=== PATIENT | female | born 1980 | race Caucasian/White ===

== ENCOUNTER 2022-03-29 12:40 | Emergency (ER) | payer OTHER ==
--- NOTE | 2022-03-29 14:54 | XR ---
EXAMINATION TYPE: XR chest 2V DATE OF EXAM: 03/29/2022 COMPARISON: NONE HISTORY: Bilateral leg swelling TECHNIQUE: 2 views FINDINGS: Heart and mediastinum are normal. Lungs are clear. Diaphragm is normal. Bony thorax is inta ct. IMPRESSION: Normal chest
[2022-03-29 15:16] LABS: Basophils # (A) 0.1 k/uL (0-0.2); Basophils % (A) 1 %; Eosinophils # (A) 0.2 k/uL (0-0.7); Eosinophils % (A) 4 %; HCT 42.4 % (34.0-46.0); HGB 13.6 gm/dL (11.4-16.0); Lymphocytes # (A) 2.7 k/uL (1.0-4.8); Lymphocytes % (A) 53 %; MCH 31.7 pg (25.0-35.0); MCHC 32.1 g/dL (31.0-37.0); MCV 98.8 fL (80.0-100.0); Mean Platelet Volume 7.8; Monocytes # (A) 0.3 k/uL (0-1.0); Monocytes % (A) 6 %; Neutrophils # (A) 1.7 k/uL (1.3-7.7); Neutrophils % (A) 33 %; Platelet Count 313 k/uL (150-450); RBC 4.29 m/uL (3.80-5.40); RDW 13.6 % (11.5-15.5); WBC 5.2 k/uL (3.8-10.6)
[2022-03-29 15:31] LABS: ALT 16 U/L (4-34); AST 25 U/L (14-36); African American GFR (CKD) >90 (>60 ml/min/1.73 sqM); Albumin 4.5 g/dL (3.5-5.0); Alkaline Phosphatase 91 U/L (38-126); Anion Gap 12 mmol/L; Blood Urea Nitrogen 12 mg/dL (7-17); Carbon Dioxide 23 mmol/L (22-30); Chloride 105 mmol/L (98-107); Glucose 82 mg/dL (74-99); Lipase 70 U/L (23-300); Non-African American GFR(CKD) >90 (>60 ml/min/1.73 sqM); Potassium 3.9 mmol/L (3.5-5.1); Sodium 140 mmol/L (137-145); Total Bilirubin 0.5 mg/dL (0.2-1.3); Total Protein 7.3 g/dL (6.3-8.2)
--- NOTE | 2022-03-29 15:42 | US ---
EXAMINATION TYPE: US venous doppler duplex LE BI DATE OF EXAM: 03/29/2022 3:32 PM COMPARISON: NONE CLINICAL HISTORY: swelling. SIDE PERFORMED: Bilateral TECHNIQUE: The lower extremity deep venous system is examined utilizing real time linear array sonog dannie with graded compression, doppler sonography and color-flow sonography. VESSELS IMAGED: Common Femoral Vein Deep Femoral Vein Greater Saphenous Vein * Femoral Vein Popliteal Vein Small Saphenous Vein * Proximal Calf Veins (* superficial vessels) Right Leg: Negative for DVT Left Leg: Negative for DVT IMPRESSION: No evidence of deep vein thrombosis in the left and right leg.
--- NOTE | 2022-03-29 17:27 | ED ---
Extremity Problem HPI - General Chief complaint: Extremity Problem,Nontraumatic Stated complaint: leg&ankle swelling Time Seen by Provider: 03/29/22 14:09 Source: patient Mode of arrival: ambulatory Limitations: no limitations - History of Present Illness Initial comments: Patient is 41-year-old female with past medical history of GERD, fibromyalgia, and asthma who presents to the emergency department with a chief complaint of lower leg swelling. Patient states symptoms started today and it worsened throughout the day. Patient noticed after 2 mile walk. Swelling is in both feet and ankles and travels to the lower calves. She denies leg pain and injury. Denies history of DVT and PE. Denies history of cardiac disease. Denies fever, chills, chest pain, shortness of breath, cough, abdominal pain, nausea, vomiting. Patient states she walks 20-30 miles a day. States for the past 3 weeks she has only walks about 10 miles a day. - Related Data Home Medications Medication Instructions Recorded Confirmed LORazepam [Ativan] 1 mg PO TID PRN 09/15/15 09/15/15 Previous Rx's Medication Instructions Recorded Naproxen [Naprosyn] 250 mg PO BID PRN #15 tab 09/15/15 Allergies Allergy/AdvReac Type Severity Reaction Status Date / Time Penicillins Allergy Rash/Hives Verified 03/29/22 12:54 Review of Systems ROS Statement: Those systems with pertinent positive or pertinent negative responses have been documented in the HPI. ROS Other: All systems not noted in ROS Statement are negative. Past Medical History Past Medical History: Asthma, Fibromyalgia, GERD/Reflux Additional Past Medical History / Comment(s): bulging disc-neck & back History of Any Multi-Drug Resistant Organisms: None Reported Past Surgical History: Section, Cholecystectomy Past Anesthesia/Blood Transfusion Reactions: No Reported Reaction Past Psychological History: No Psychological Hx Reported Smoking Status: Current every day smoker Past Alcohol Use History: None Reported Past Drug Use History: Marijuana General Exam Limitations: no limitations General appearance: alert, in no apparent distress Head exam: Present: atraumatic, normocephalic, normal inspection Eye exam: Present: normal appearance, PERRL, EOMI. Absent: scleral icterus, conjunctival injection, periorbital swelling Neck exam: Present: normal inspection. Absent: tenderness, meningismus, lymphadenopathy Respiratory exam: Present: normal lung sounds bilaterally. Absent: respiratory distress, wheezes, rales, rhonchi, stridor Cardiovascular Exam: Present: regular rate, normal rhythm, normal heart sounds. Absent: systolic murmur, diastolic murmur, rubs, gallop, clicks, JVD, S3, S4 GI/Abdominal exam: Present: soft, normal bowel sounds. Absent: distended, tenderness, guarding, rebound, rigid Extremities exam: Present: full ROM, normal capillary refill, pedal edema (non pitting ). Absent: tenderness, calf tenderness Neurological exam: Present: alert, oriented X3, CN II-XII intact Psychiatric exam: Present: normal affect, normal mood Course Vital Signs 03/29/22 03/29/22 12:54 18:16 Temperature 98 F 98.2 F Pulse Rate 69 71 Respiratory 18 16 Rate Blood Pressure 119/63 111/70 O2 Sat by Pulse 99 99 Oximetry Medical Decision Making - Medical Decision Making This is a 41-year-old female who presents with swelling of the bilateral legs. On physical exam the bilateral feet, ankles, and lower calves are edematous without any pitting. Laboratory studies obtained. Kidney function is normal. BNP is within normal limits. Urinalysis is unremarkable. Results discussed with patient. This is likely dependent edema. Patient will be discharged with conservative care instructions. She is also instructed that she needs to establish care with primary care provider who can further evaluate management her symptoms. She verbalizes understanding. Dr. Salazar is my attending. - Lab Data Result diagrams: 03/29/22 15:08 03/29/22 15:08 Lab Results 03/29/22 03/29/22 03/29/22 Range/Units 15:08 15:08 15:08 WBC 5.2 (3.8-10.6) k/uL RBC 4.29 (3.80-5.40) m/uL Hgb 13.6 (11.4-16.0) gm/dL Hct 42.4 (34.0-46.0) % MCV 98.8 (80.0-100.0) fL MCH 31.7 (25.0-35.0) pg MCHC 32.1 (31.0-37.0) g/dL RDW 13.6 (11.5-15.5) % Plt Count 313 (150-450) k/uL MPV 7.8 Neutrophils % 33 % Lymphocytes % 53 % Monocytes % 6 % Eosinophils % 4 % Basophils % 1 % Neutrophils # 1.7 (1.3-7.7) k/uL Lymphocytes # 2.7 (1.0-4.8) k/uL Monocytes # 0.3 (0-1.0) k/uL Eosinophils # 0.2 (0-0.7) k/uL Basophils # 0.1 (0-0.2) k/uL Sodium 140 (137-145) mmol/L Potassium 3.9 (3.5-5.1) mmol/L Chloride 105 (98-107) mmol/L Carbon Dioxide 23 (22-30) mmol/L Anion Gap 12 mmol/L BUN 12 (7-17) mg/dL Creatinine 0.56 (0.52-1.04) mg/dL Est GFR (CKD-EPI)AfAm >90 (>60 ml/min/1.73 sqM) Est GFR (CKD-EPI)NonAf >90 (>60 ml/min/1.73 sqM) Glucose 82 (74-99) mg/dL Calcium 9.0 (8.4-10.2) mg/dL Total Bilirubin 0.5 (0.2-1.3) mg/dL AST 25 (14-36) U/L ALT 16 (4-34) U/L Alkaline Phosphatase 91 (38-126) U/L NT-Pro-B Natriuret Pep 115 pg/mL Total Protein 7.3 (6.3-8.2) g/dL Albumin 4.5 (3.5-5.0) g/dL Lipase 70 (23-300) U/L Urine Color Urine Appearance (Clear) Urine pH (5.0-8.0) Ur Specific Barnum (1.001-1.035) Urine Protein (Negative) Urine Glucose (UA) (Negative) Urine Ketones (Negative) Urine Blood (Negative) Urine Nitrite (Negative) Urine Bilirubin (Negative) Urine Urobilinogen (<2.0) mg/dL Ur Leukocyte Esterase (Negative) 03/29/22 Range/Units 17:03 WBC (3.8-10.6) k/uL RBC (3.80-5.40) m/uL Hgb (11.4-16.0) gm/dL Hct (34.0-46.0) % MCV (80.0-100.0) fL MCH (25.0-35.0) pg MCHC (31.0-37.0) g/dL RDW (11.5-15.5) % Plt Count (150-450) k/uL MPV Neutrophils % % Lymphocytes % % Monocytes % % Eosinophils % % Basophils % % Neutrophils # (1.3-7.7) k/uL Lymphocytes # (1.0-4.8) k/uL Monocytes # (0-1.0) k/uL Eosinophils # (0-0.7) k/uL Basophils # (0-0.2) k/uL Sodium (137-145) mmol/L Potassium (3.5-5.1) mmol/L Chloride (98-107) mmol/L Carbon Dioxide (22-30) mmol/L Anion Gap mmol/L BUN (7-17) mg/dL Creatinine (0.52-1.04) mg/dL Est GFR (CKD-EPI)AfAm (>60 ml/min/1.73 sqM) Est GFR (CKD-EPI)NonAf (>60 ml/min/1.73 sqM) Glucose (74-99) mg/dL Calcium (8.4-10.2) mg/dL Total Bilirubin (0.2-1.3) mg/dL AST (14-36) U/L ALT (4-34) U/L Alkaline Phosphatase (38-126) U/L NT-Pro-B Natriuret Pep pg/mL Total Protein (6.3-8.2) g/dL Albumin (3.5-5.0) g/dL Lipase (23-300) U/L Urine Color Yellow Urine Appearance Clear (Clear) Urine pH 6.0 (5.0-8.0) Ur Specific Barnum 1.016 (1.001-1.035) Urine Protein Negative (Negative) Urine Glucose (UA) Negative (Negative) Urine Ketones Negative (Negative) Urine Blood Negative (Negative) Urine Nitrite Negative (Negative) Urine Bilirubin Negative (Negative) Urine Urobilinogen <2.0 (<2.0) mg/dL Ur Leukocyte Esterase Negative (Negative) - EKG Data EKG Comments: EKG taken at 14:50 Sinus rhythm, no ST segment or T-wave abnormalities Ventricular rate 65 SD interval 148 QRS duration 92 QTc 416 Disposition Clinical Impression: Dependent edema Disposition: HOME SELF-CARE Condition: Good Instructions (If sedation given, give patient instructions): Edema (ED) Additional Instructions: Elevate the legs above your waist to improve swelling. Use of compression socks will help symptoms as well. Follow-up with primary care provider in one to 2 days. Return to the emergency department if you experience new, concerning, or worsening symptoms Is patient prescribed a controlled substance at d/c from ED?: No Referrals: None,Stated [Primary Care Provider] - 1-2 days Time of Disposition: 17:26
[2022-03-29 17:34] LABS: Appearance,Urine Clear (Clear); Bilirubin,Urine Negative (Negative); Blood,Urine Negative (Negative); Color,Urine Yellow; Glucose,Urine (UA) Negative (Negative); Ketones,Urine Negative (Negative); Leukocyte Esterase,Urine Negative (Negative); Nitrite,Urine Negative (Negative); Protein,Urine Negative (Negative); Specific Gravity,Urine 1.016 (1.001-1.035); Urobilinogen,Urine <2.0 mg/dL (<2.0)
[2022-03-29 18:23] VITALS: BP 111/70; PULSE 71; RESP 16; TEMP 98.2
== END 2022-03-29 18:25 | disposition home or self-care (01) ==
LOC: EC 12:40
DX: R60.9 Edema, unspecified (principal); J45.909 Unspecified asthma, uncomplicated; F17.200 Nicotine dependence, unspecified, uncomplicated; Z88.0 Allergy status to penicillin
CPT/HCPCS: 36415; 71046; 80053; 81003; 83690; 83880; 85025; 93005; 93970; 99284

== ENCOUNTER 2024-08-19 15:50 | Emergency (ER) | payer SELFPAY ==
--- NOTE | 2024-08-19 16:10 | ED ---
Lower Extremity Injury HPI - General Chief Complaint: Extremity Injury, Lower Stated Complaint: Fall-L foot injury Time Seen by Provider: 08/19/24 16:02 Source: patient, RN notes reviewed Mode of arrival: wheelchair Limitations: physical limitation - History of Present Illness Initial Comments: This is a 43-year-old female no significant medical history presenting to the emergency department for complaint of left ankle injury. States that prior to arrival she was walking outside when she slipped on ice and landed on her left ankle. Patient has been unable to bear weight after the injury and is complaining of severe pain over the front of the left ankle. She denies other injuries at the time of the fall. Denies previous surgeries of the left ankle. - Related Data Home Medications Medication Instructions Recorded Confirmed LORazepam [Ativan] 1 mg PO TID PRN 09/15/15 09/15/15 Previous Rx's Medication Instructions Recorded Naproxen [Naprosyn] 250 mg PO BID PRN #15 tab 09/15/15 Allergies Allergy/AdvReac Type Severity Reaction Status Date / Time azithromycin Allergy Unknown Verified 08/19/24 15:53 [From Zithromax [facility]-[place]] Penicillins Allergy Rash/Hives Verified 08/19/24 15:53 Review of Systems ROS Statement: Those systems with pertinent positive or pertinent negative responses have been documented in the HPI. ROS Other: All systems not noted in ROS Statement are negative. Past Medical History Past Medical History: Asthma, Fibromyalgia, GERD/Reflux Additional Past Medical History / Comment(s): bulging disc-neck & back History of Any Multi-Drug Resistant Organisms: None Reported Past Surgical History: Section, Cholecystectomy Past Anesthesia/Blood Transfusion Reactions: No Reported Reaction Past Psychological History: No Psychological Hx Reported Smoking Status: Vaper Past Alcohol Use History: None Reported Past Drug Use History: Marijuana General Exam Limitations: physical limitation General appearance: alert, in no apparent distress Neck exam: Present: normal inspection. Absent: tenderness, meningismus, lymphadenopathy Respiratory exam: Present: normal lung sounds bilaterally. Absent: respiratory distress, wheezes, rales, rhonchi, stridor Cardiovascular Exam: Present: regular rate, normal rhythm, normal heart sounds. Absent: systolic murmur, diastolic murmur, rubs, gallop, clicks GI/Abdominal exam: Present: soft, normal bowel sounds. Absent: distended, tenderness, guarding, rebound, rigid Left Ankle exam: Present: tenderness, swelling, deformity. Absent: normal inspection, full ROM, abrasion, ecchymosis Foot/Toe exam: Present: normal inspection, full ROM. Absent: tenderness, swelling, abrasion Neurovascular tendon exam: Present: no vascular compromise. Absent: pulse deficit, abnormal cap refill Gait: not tested/not observed Back exam: Present: normal inspection Skin exam: Present: warm, dry, intact, normal color. Absent: rash Course Vital Signs 08/19/24 08/19/24 08/19/24 15:54 17:10 18:34 Temperature 98 F 98.1 F 97.6 F Pulse Rate 105 H 90 82 Respiratory 20 18 18 Rate Blood Pressure 117/76 111/74 119/78 O2 Sat by Pulse 100 100 99 Oximetry Procedures - Orthopedic Splinting/Casting Injury #1 Side: left Lower Extremity Injury Location: long leg Lower Extremity Immobilizer: posterior splint, Otoniel wrap, synthetic pre-padded splint Medical Decision Making - Medical Decision Making Was pt. sent in by a medical professional or institution (, [place], [facility], urgent care, hospital, or long-term...) When possible be specific @ -No Did you speak to anyone other than the patient for history (EMS, parent, family, police, friend...)? What history was obtained from this source @ -No Did you review nursing and triage notes (agree or disagree)? Why? @ -I reviewed and agree with nursing and triage notes Were old charts reviewed (outside hosp., previous admission, EMS record, old EKG, old radiological studies, urgent care reports/EKG's, long-term records)? Report findings @ -No old charts were reviewed Differential Diagnosis (chest pain, altered mental status, abdominal pain women, abdominal pain men, vaginal bleeding, weakness, fever, dyspnea, syncope, headache, dizziness, GI bleed, back pain, seizure, CVA, palpatations, mental health, musculoskeletal)? @ -Differential Musculoskeletal Muscular strain, contusion, ligament sprain, fracture, arthritis, septic arthritis, bursitis, cellulitis, muscle spasm, nerve compression, DVT, arterial occlusion, herpes zoster, electrolyte abnormality, tumor.... This is not meant to be in all inclusive list EKG interpreted by me (3pts min.). @ -None X-rays interpreted by me (1pt min.). @ -X-ray of the left ankle remarkable for a comminuted oblique fracture of the distal tibia and fibula. Distal tibial fracture shows extension to the base of the medial malleolus and including fracture of the posterior malleolus with a minimal 4 mm lateral displacement of the distal fibular fracture. CT interpreted by me (1pt min.). @ -None done U/S interpreted by me (1pt. min.). @ -None done What testing was considered but not performed or refused? (CT, X-rays, U/S, labs)? Why? @ -None What meds were considered but not given or refused? Why? @ -None Did you discuss the management of the patient with other professionals (professionals i.e. , PA, [employer] [facility], lab, RT, psych nurse, social work administrator, draw string knotter, teacher, bank secrecy act officer, medical case worker)? Give summary @ -I spoke with on-call credit administration specialist, Dr. Riggs, was recommended transfer to orthopedic trauma hospital for further evaluation with concern for instability of fracture. It is also recommend patient be placed in posterior leg splint with reduction x-rays. Was smoking cessation discussed for >3mins.? @ -No Was critical care preformed (if so, how long)? @ -No Were there social determinants of health that impacted care today? How? (Homelessness, low income, unemployed, alcoholism, drug addiction, transportation, low edu. Level, literacy, decrease access to med. care, shelter, rehab)? @ -No Was there de-escalation of care discussed even if they declined (Discuss DNR or withdrawal of care, Hospice)? DNR status @ -No What co-morbidities impacted this encounter? (DM, HTN, Smoking, COPD, CAD, Cancer, CVA, ARF, Chemo, Hep., AIDS, mental health diagnosis, sleep apnea, morbid obesity)? @ -None Was patient admitted / discharged? Hospital course, mention meds given and route, prescriptions, significant lab abnormalities, going to OR and other pertinent info. @ -Transfer. 43-year-old female presenting after fall and left ankle injury. There is no deformity of the left ankle and range of motion is unable to be assessed due to pain. Patient is neurovascularly intact of the lower extremity. She is provided with dose of Tylenol. X-ray is concerning for comminuted oblique fracture of the distal tibia and fibula. I spoke with on-call credit administration specialist, Dr. Riggs, who personally reviewed x-rays and recommends transfer to orthopedic trauma center for further evaluation with concern for instability of the patient's fracture. It is also recommended that patient be placed in a posterior leg splint with dorsiflexion of the ankle and repeat x-ray. Case discussed with Dr. Cooper Patient has been automatically excepted at [facility] by . Undiagnosed new problem with uncertain prognosis? @ -No Drug Therapy requiring intensive monitoring for toxicity (Heparin, Nitro, Insulin, Cardizem)? @ -No Were any procedures done? @ -No Diagnosis/symptom? @ -Comminuted oblique fracture of the distal tibia and fibula Acute, or Chronic, or Acute on Chronic? @ -Acute Uncomplicated (without systemic symptoms) or Complicated (systemic symptoms)? @ -Complicated Side effects of treatment? @ -No Exacerbation, Progression, or Severe Exacerbation? @ -No Poses a threat to life or bodily function? How? (Chest pain, [place], [place], pneumonia, PE, COPD, DKA, ARF, appy, cholecystitis, CVA, Diverticulitis, Homicidal, Suicidal, threat to staff... and all critical care pts) @ -No Disposition Clinical Impression: Tibia/fibula fracture Disposition: OTHER INSTITUTION NOT DEFINED Condition: Stable Referrals: Joaquim Rousseau MD [Primary Care Provider] - 1-2 days - Out of Hospital Transfer - Req. Specs Out of Hospital Transfer - Requested Specifics: Other Emergency Center ([facility])
[2024-08-19] MEDS: ACETAMINOPHEN TAB 500 MG TAB PO STA (16:23)
--- NOTE | 2024-08-19 16:31 | XR ---
EXAMINATION TYPE: XR ankle complete LT DATE OF EXAM: 08/19/2024 COMPARISON: NONE CLINICAL INDICATION: Female, 43 years old with history of fall, pain; TECHNIQUE: 3 views FINDINGS: Comminuted oblique fracture distal tibial shaft extending into the metaphysis, base of the medial malleolus, and posterior malleolus. Minimally comminuted oblique fracture of the distal fibula with slight 4 mm of lateral displacement. IMPRESSION: Comminuted oblique fractures of both distal tibia and fibula. The distal tibial fracture shows extens ion to the base of the medial malleolus and also includes a fracture of the posterior malleolus. Mini mal 4 mm of lateral displacement of the distal fibular fracture. [facility], , 08/19/2024 4:29 PM
[2024-08-19] MEDS: KETOROLAC 15 MG/ML 1 ML VIAL IM STA (17:11)
[2024-08-19] MEDS: HYDROmorphone 1 MG/ML 1 ML SYRINGE IM STA ×2 (17:12→19:22)
--- NOTE | 2024-08-19 17:57 | XR ---
EXAMINATION TYPE: XR ankle complete LT DATE OF EXAM: 08/19/2024 COMPARISON: Left ankle radiograph 08/19/2024 HISTORY: Pain TECHNIQUE: 3 views of the left ankle are submitted for evaluation. FINDINGS: Interval placing a cast material which limits evaluation of fine osseous detail. Redemonstr ation of comminuted oblique fracture distal tibial shaft extending into the metaphysis, base of the m edial malleolus, and posterior malleolus. Minimally comminuted oblique fracture of the distal fibula redemonstrated. There is some medial clear space widening of approximately 4 to 5 mm. No significant change in displacement from prior exam. There is surrounding soft tissue swelling of the ankle. IMPRESSION: No significant change in displacement of previously seen comminuted oblique fractures of the distal t ibia and fibula. [facility], , 08/19/2024 5:54 PM
[2024-08-19 18:35] VITALS: TEMP 97.6
[2024-08-19 19:29] VITALS: BP 108/72; PULSE 72; RESP 16
== END 2024-08-19 19:27 | disposition other institution (70) ==
LOC: EC 15:50
DX: S82.302A Unspecified fracture of lower end of left tibia, initial encounter for closed fracture (principal); F17.290 Nicotine dependence, other tobacco product, uncomplicated; Z88.0 Allergy status to penicillin; Z88.8 Allergy status to other drugs, medicaments and biological substances; W00.0XXA Fall on same level due to ice and snow, initial encounter
CPT/HCPCS: 73610; 99284; 96372; 29505; J1171; J1885